=== PATIENT | male | born 1970 | race Caucasian/White ===

== ENCOUNTER 2022-01-31 22:34 | Emergency (ER) | payer SELFPAY ==
[~2022-01-31] VITALS: Ht 177.8 cm; Wt 106.6 kg
[2022-01-31] MEDS ORDERED: LABETALOL HCL 5 MG/ML 20ML VIAL IV STA (23:17)
[2022-01-31] MEDS ORDERED: NORVASC5 MG PO (23:23)
[2022-02-01 00:13] VITALS: BP 190/118
== END 2022-02-01 00:13 | disposition home or self-care (01) ==
LOC: FSED 22:43
DX: I10 Essential (primary) hypertension (principal)
CPT/HCPCS: 80048; 85025; 99283; J3490